=== PATIENT | male | born 1975 | race Caucasian/White ===

== ENCOUNTER 2022-11-29 11:10 | Inpatient (IN) | payer OTHER ==
[2022-11-29] MEDS ORDERED: Cefepime 2 GM VIAL ONE ×2 (13:27→14:12)
[2022-11-29 13:51] LABS: #Eosinphils 0.1 thou/uL (0.0-0.7); #Lymphocytes 2.4 thou/uL (1.20-3.40); #Monocytes 1.3 thou/uL (0.11-0.59); #Neutrophils 8.3 thou/uL (1.40-6.50); %Basophils 0.4 % (0.0-1.0); %Eosinophils 0.9 % (0.0-10.0); %Lymphocytes 19.6 % (21.0-51.0); %Monocytes 10.8 % (0.0-10.0); %Neutrophils 68.4 % (42.0-75.0); Hemoglobin 14.1 g/dL (14.0-18.0); Mean Corpuscular HGB CONC 33.6 g/dL (32.0-36.0); Mean Corpuscular Hemoglobin 30.8 pg (27.0-31.0); Mean Corpuscular Volume 91.9 fl (78.0-98.0); Platelet Count 289 10x3/uL (130-400); RBC Distribution Width 12.3 % (11.5-14.5); Red Blood Cell (RBC) Count 4.58 mill/uL (4.70-6.10); White Blood Cell (WBC) Count 12.1 10x3/uL (4.8-10.8)
[2022-11-29] MEDS ORDERED: Lidocaine 1% w/Epinephrine 1:100K 20 ML VIAL ONE (14:02)
[2022-11-29] MEDS ORDERED: Vancomycin 1 GM/200 ML (FROZEN) BAG ONE (14:12)
[2022-11-29 14:17] LABS: ALT (SGPT) 13 U/L (8-55); AST (SGOT) 11 U/L (5-34); Albumin 4.3 g/dL (3.5-5.0); Alkaline Phosphatase 90 U/L (40-110); Anion Gap 15 mmol/L (10-20); BUN (Urea Nitrogen) 13 mg/dL (8.9-20.6); Bilirubin, Total 0.6 mg/dL (0.2-1.2); Calc. Creatinine Clearance 0 mL/min (70-130); Calcium 10.1 mg/dL (7.8-10.44); Carbon Dioxide 26 mmol/L (22-29); Chloride 103 mmol/L (98-107); Estimated GFR 89; Glucose 98 mg/dL (70-105); Potassium 4.4 mmol/L (3.5-5.1); Protein, Total 8.3 g/dL (6.0-8.3); Sodium 140 mmol/L (136-145)
[2022-11-29] MEDS ORDERED: Iopamidol-370 76% 500 ML 1 ML ONE (14:45)
[2022-11-29] MEDS ORDERED: VANCOMYCIN 2 GRAM/500 ML BAG 2 GM in Premix Bag 1 BAG IVPB SCH (15:00)
[2022-11-29] MEDS ORDERED: Acetaminophen 500 MG TAB ONE (17:35)
[2022-11-29] MEDS ORDERED: Fentanyl 100 MCG/2 ML VIAL ONE (17:50)
[2022-11-29 18:22] LABS: SARS-CoV-2 NAA Rapid Test Not Detected (NotDetected)
[2022-11-29] MEDS ORDERED: Acetaminophen 325 MG TAB PO PRN (18:43)
[2022-11-29] MEDS ORDERED: Ondansetron PF 4 MG/2 ML Vial IVP PRN (18:43)
[2022-11-29] MEDS ORDERED: VANCOMYCIN IVPB PRN (18:43)
[2022-11-29] MEDS ORDERED: Ondansetron ODT 4 MG TAB PO PRN (18:43)
[2022-11-29] MEDS: Sodium Chloride 0.9% 1,000 ML IV SCH (20:13)
[2022-11-29] MEDS ORDERED: Cefepime 2 GM in Sodium Chloride 0.9% 100 ML IVPB SCH (21:00)
[2022-11-29 22:56] VITALS: BMI 30.1
[2022-11-30] MEDS: Vancomycin 1.5 GRAM/300 ML BAG 1.5 GM in Premix Bag 1 BAG IVPB SCH ×2 (01:39→12:53)
[2022-11-30 06:52] LABS: #Eosinphils 0.2 thou/uL (0.0-0.7); #Lymphocytes 2.3 thou/uL (1.20-3.40); #Monocytes 1.1 thou/uL (0.11-0.59); #Neutrophils 5.5 thou/uL (1.40-6.50); %Basophils 0.3 % (0.0-1.0); %Eosinophils 2.1 % (0.0-10.0); %Neutrophils 60.6 % (42.0-75.0); Hemoglobin 12.6 g/dL (14.0-18.0); Mean Corpuscular HGB CONC 33.2 g/dL (32.0-36.0); Mean Corpuscular Volume 90.3 fl (78.0-98.0); Mean Platelet Volume 7.6 fL (7.4-10.4); Platelet Count 285 10x3/uL (130-400); RBC Distribution Width 12.2 % (11.5-14.5)
[2022-11-30 07:17] LABS: Anion Gap 11 mmol/L (10-20); BUN (Urea Nitrogen) 12 mg/dL (8.9-20.6); Calc. Creatinine Clearance 167 mL/min (70-130); Calcium 9.1 mg/dL (7.8-10.44); Carbon Dioxide 24 mmol/L (22-29); Chloride 106 mmol/L (98-107); Estimated GFR 110; Glucose 86 mg/dL (70-105); Sodium 137 mmol/L (136-145)
[2022-11-30] MEDS: HYDROcodone/Acetaminophen 5/325 mg Tablet PO PRN ×2 (08:29→20:14)
[2022-11-30] MEDS: Sodium Chloride 0.9% 1,000 ML IV SCH ×2 (08:31→10:18)
[2022-11-30] MEDS: Lisinopril 10 MG TAB PO SCH (08:31)
[2022-11-30] MEDS ORDERED: Lisinopril 10 MG TAB PO SCH (09:00)
[2022-12-01 00:53] LABS: Vancomycin, Trough 15.4 ug/mL
[2022-12-01] MEDS: Vancomycin 1.5 GRAM/300 ML BAG 1.5 GM in Premix Bag 1 BAG IVPB SCH (01:18)
[2022-12-01] MEDS: Sodium Chloride 0.9% 1,000 ML IV SCH ×2 (05:45→10:51)
[2022-12-01 06:50] LABS: #Eosinphils 0.2 thou/uL (0.0-0.7); #Lymphocytes 2.5 thou/uL (1.20-3.40); #Monocytes 0.6 thou/uL (0.11-0.59); #Neutrophils 2.5 thou/uL (1.40-6.50); %Basophils 0.2 % (0.0-1.0); %Eosinophils 4.3 % (0.0-10.0); %Lymphocytes 42.7 % (21.0-51.0); %Monocytes 10.2 % (0.0-10.0); %Neutrophils 42.6 % (42.0-75.0); Hemoglobin 12.6 g/dL (14.0-18.0); Mean Corpuscular HGB CONC 33.7 g/dL (32.0-36.0); Mean Corpuscular Hemoglobin 30.6 pg (27.0-31.0); Mean Corpuscular Volume 90.9 fl (78.0-98.0); Mean Platelet Volume 7.3 fL (7.4-10.4); Platelet Count 305 10x3/uL (130-400); RBC Distribution Width 12.3 % (11.5-14.5); Red Blood Cell (RBC) Count 4.12 mill/uL (4.70-6.10); White Blood Cell (WBC) Count 5.8 10x3/uL (4.8-10.8)
[2022-12-01 07:13] LABS: Anion Gap 12 mmol/L (10-20); BUN (Urea Nitrogen) 12 mg/dL (8.9-20.6); Calc. Creatinine Clearance 176 mL/min (70-130); Calcium 9.4 mg/dL (7.8-10.44); Carbon Dioxide 23 mmol/L (22-29); Chloride 109 mmol/L (98-107); Estimated GFR 112; Glucose 89 mg/dL (70-105); Sodium 140 mmol/L (136-145)
[2022-12-01] MEDS: HYDROcodone/Acetaminophen 5/325 mg Tablet PO PRN (10:48)
[2022-12-01] MEDS: Lisinopril 10 MG TAB PO SCH (10:50)
[2022-12-01] MEDS ORDERED: Doxycycline 100 MG CAP PO SCH ×2 (13:30→21:00)
[2022-12-01 15:02] VITALS: BP 104/70; TEMP 98.5
== END 2022-12-01 15:45 | DRG 581 ==
LOC: EEVIPCON 11:10 → ERS 11:10 → T4-A 17:30
PROVIDERS: ADMIT Internal Medicine; ATTEND Hospitalist
PROC: 0K9T0ZZ Drainage of Left Lower Leg Muscle, Open Approach (ICD-10-PCS; principal; 2022-11-29)
DX: L03.116 Cellulitis of left lower limb (principal); L02.416 Cutaneous abscess of left lower limb; I10 Essential (primary) hypertension; Z20.822 Contact with and (suspected) exposure to COVID-19; Z90.49 Acquired absence of other specified parts of digestive tract; Z88.5 Allergy status to narcotic agent; Z88.6 Allergy status to analgesic agent; Z88.8 Allergy status to other drugs, medicaments and biological substances; Z79.899 Other long term (current) drug therapy
CPT/HCPCS: 36415; 76999; 80048; 80053; 80202; 83605; 85025; 87040; 87070; 87205; 97139; J0692; J3010; J3370; J3370-JW; J7050; Q9967; U0002